=== PATIENT | female | born 1980 | race Caucasian/White ===

== ENCOUNTER 2016-12-28 11:35 | Inpatient (IN) | payer SELFPAY ==
[~2016-12-28] VITALS: Ht 152.4 cm; Wt 52.6 kg
[2016-12-28] VITALS (8 sets, daily range): BP systolic 103–118; BP diastolic 70–77; BMI 22.7
[2016-12-28 12:36] LABS: BASOPHILS 0.5 % (0.0-2.0); EOSINOPHILS 0.2 % (0-7); HEMATOCRIT 41.1 % (36.0-48.0); IMMATURE GRANULOCYTES 0.2 % (0-5); LYMPHOCYTES 16.5 % (15-50); MCH 28.5 pg (26.0-34.0); MCHC 31.6 g/dL (31.0-37.0); MCV 90.1 fL (80.0-100.0); MEAN PLATELET VOLUME 9.4 fL (7.4-10.4); MONOCYTES 4.7 % (2-11); NEUTROPHILS 77.9 % (40-80); PLATELET COUNT 301 10x3/uL (130-400); RBC 4.56 10x6/uL (4.00-5.40); RDW 15.2 % (11.5-14.5); WBC 8.1 10x3/uL (4.8-10.8)
[2016-12-28 13:24] LABS: ALBUMIN 3.2 g/dL (3.4-5.0); BILIRUBIN - TOTAL 0.47 mg/dL (0.2-1.3); CALCIUM 9.3 mg/dL (8.5-10.1); CREATININE - SERUM 1.1 mg/dL (0.6-1.3); MAGNESIUM - SERUM 1.6 mg/dL (1.8-2.4); PROTEIN - SERUM 7.8 g/dL (6.4-8.2)
[2016-12-28 13:51] LABS: APPEARANCE HAZY (CLEAR); BILIRUBIN NEGATIVE (NEGATIVE); COLOR STRAW (YELLOW); GLUCOSE 1000 mg/dL (NEGATIVE); KETONE LARGE mg/dL (NEGATIVE); LEUKOCYTE ESTERASE 1+ (NEGATIVE); NITRITE NEGATIVE (NEGATIVE); PROTEIN NEGATIVE (NEGATIVE); RED CELLS - URINE OCC /hpf (0-5); SPECIFIC GRAVITY 1.015 (1.005-1.020); UROBILINOGEN NORMAL (NORMAL)
[2016-12-28 13:52] LABS: BACTERIA FEW /hpf (NONE SEEN); EPITHELIAL CELLS 0-5 /hpf (0-5); MUCUS <1+ /lpf (NONE SEEN)
[2016-12-28 18:16] LABS: BASOPHILS 0.2 % (0.0-2.0); EOSINOPHILS 0.6 % (0-7); IMMATURE GRANULOCYTES 0.2 % (0-5); LYMPHOCYTES 23.1 % (15-50); MCH 28.2 pg (26.0-34.0); MCHC 31.8 g/dL (31.0-37.0); MCV 88.7 fL (80.0-100.0); MEAN PLATELET VOLUME 8.7 fL (7.4-10.4); MONOCYTES 7.1 % (2-11); NEUTROPHILS 68.8 % (40-80); RDW 15.1 % (11.5-14.5); WBC 9.9 10x3/uL (4.8-10.8)
[2016-12-28 18:29] LABS: CALCIUM 7.8 mg/dL (8.5-10.1); CHLORIDE - SERUM 104 mmol/L (98-107); CREATININE - SERUM 0.9 mg/dL (0.6-1.3); SODIUM 139 mmol/L (136-145); eGFR NON AFRICAN AMERICAN 76 mL/min (90-120)
[2016-12-28 18:41] LABS: CALC OSMOLALITY 275 mosm/kg (275-300); CARBON DIOXIDE 17.8 mmol/L (21.0-32.0); GLUCOSE 125 mg/dL (74-106); UREA NITROGEN 5 mg/dL (7-18)
[2016-12-28 18:42] LABS: HEMATOCRIT 28.3 % (36.0-48.0); PLATELET COUNT 177 10x3/uL (130-400); POTASSIUM - SERUM 2.9 mmol/L (3.5-5.1); RBC 3.19 10x6/uL (4.00-5.40)
--- NOTE | 2016-12-28 19:34 | NUR ---
HX COMPLETE. PT AWAKE ALERT ORIENTED X4 O2 VIA RA O2 SAT 98% RR 16 NON LABORED BILAT LUNGS CLEAR ABD FLAT BS ACTIVE X4. HEART S1S2 HR 84 NSR. BILAT RADIAL AND PEDAL PULSES PALP +2 NO EDEMA NOTED X4 EXTREMETIES. VSS PT DENES NEEDS. WILL CONTINUE TO MONITOR.
--- NOTE | 2016-12-28 21:14 | NUR ---
PT UP IN BED WATCHING TV DENIES NEEDS. NO VISITORS AT THIS TIME. VSS. WILL CONTINUE TO MONITOR.
[2016-12-28] MEDS ORDERED: PROTONIX40 MG PO (21:55)
[2016-12-28] MEDS ORDERED: BUPROPION HCL100 MG PO (21:55)
[2016-12-28] MEDS ORDERED: PREMARIN1.25 MG PO (21:55)
[2016-12-28] MEDS ORDERED: EC-NAPROSYN375 MG PO (21:56)
[2016-12-28] MEDS ORDERED: LIPITOR20 MG PO (21:56)
[2016-12-28] MEDS ORDERED: BENTYL10 MG PO (21:56)
[2016-12-28] MEDS ORDERED: ZOFRAN4 MG PO (21:57)
[2016-12-28] MEDS ORDERED: PROVENTIL/2.5 MG/3 M INH (21:58)
[2016-12-28] MEDS ORDERED: PHENERGAN25 M1 PO (21:58)
[2016-12-28] MEDS ORDERED: STOOL SOFTENER240 MG PO (21:59)
[2016-12-28] MEDS ORDERED: NEURONTIN 300300 MG PO (21:59)
[2016-12-28] MEDS ORDERED: METAMUCIL PACKE1 PKT PO (21:59)
[2016-12-28] MEDS ORDERED: MIRALAX17 GM PO (22:00)
[2016-12-28] MEDS ORDERED: ZOLOFT50 MG PO (22:00)
[2016-12-28] MEDS ORDERED: REQUIP1 MG PO (22:00)
[2016-12-28] MEDS ORDERED: LANTUS INSULIN10 ML SC (22:02)
[2016-12-28] MEDS ORDERED: NOVOLOG100 U/M1 SC (22:04)
--- NOTE | 2016-12-28 22:16 | NUR ---
ASSISTED TO BEDSIDE COMMODE. 300 CC CARITO URINE NOTED.
--- NOTE | 2016-12-28 23:16 | NUR ---
REASSESSMENT COMPLETE PER FLOW SHEET. VSS. NO NEW CHNAGES. DENIES NEEDS. WILL CONTINUE TO MONITOR.
[2016-12-29] VITALS (14 sets, daily range): BP systolic 99–123; BP diastolic 65–81; Ht 152.4 cm; Wt 52.6 kg
--- NOTE | 2016-12-29 01:22 | NUR ---
PRN MORPHINE ADM FOR GENERALIZED PAIN. PT REQUEST BS TO BE ADM. BS [phone] U HUMULIN ADM. PER PROTOCOL. VSS WILL CONTINUE TO MONITOR.
--- NOTE | 2016-12-29 03:33 | NUR ---
REASSESSMENT COMPLETE PER FLOW SHEET. VSS NO NEW CHANGES. WILL CONTINUE TO MONITOR.
[2016-12-29 04:20] LABS: BILIRUBIN - TOTAL 0.19 mg/dL (0.2-1.3); CARBON DIOXIDE 16.8 mmol/L (21.0-32.0); CREATININE - SERUM 1.1 mg/dL (0.6-1.3); MAGNESIUM - SERUM 1.6 mg/dL (1.8-2.4); PHOSPHOROUS 2.1 mg/dL (2.5-4.9)
[2016-12-29 04:25] LABS: BASOPHILS 0.6 % (0.0-2.0); EOSINOPHILS 2.2 % (0-7); HEMOGLOBIN 9.1 g/dL (12-16); IMMATURE GRANULOCYTES 0.5 % (0-5); LYMPHOCYTES 33.9 % (15-50); MCH 28.1 pg (26.0-34.0); MCHC 31.4 g/dL (31.0-37.0); MCV 89.5 fL (80.0-100.0); MEAN PLATELET VOLUME 8.8 fL (7.4-10.4); MONOCYTES 6.5 % (2-11); NEUTROPHILS 56.3 % (40-80); PLATELET COUNT 173 10x3/uL (130-400); RBC 3.24 10x6/uL (4.00-5.40); RDW 15.1 % (11.5-14.5); WBC 6.5 10x3/uL (4.8-10.8)
[2016-12-29 04:26] LABS: ALBUMIN 2.3 g/dL (3.4-5.0); ANION GAP 20.9 mmol/L (8-16); POTASSIUM - SERUM 3.7 mmol/L (3.5-5.1); PROTEIN - SERUM 5.6 g/dL (6.4-8.2)
--- NOTE | 2016-12-29 07:30 | NUR ---
PT AWAKE AND ALERT. CONVERSANT. C/O SOME PAIN IN HER ABDOMEN. NO NAUSEA OR VOMITING. DENIES ANY STOOLS. SHIFT ASSESSMENT COMPLETE. SEE FLOW SHEET FOR DETAILS.
--- NOTE | 2016-12-29 09:53 | NUR ---
Is the patient Alert and Oriented? Yes 0 * How many steps to enter\exit or inside your home? RAMP 0 * PCP DOES NOT HAVE ONE AT THIS TIME 0 * Pharmacy DOES NOT HAVE ONE 0 * Preadmission Environment Home with Family 0 * ADLs Independent 0 * Equipment Glucometer 0 * List name and contact numbers for known caregivers / representatives who currently or will assist patient after discharge: MOTHER: JACOB CACERES [phone] 0 * Community resources currently utilized None 0 * Additional services required to return to the preadmission environment? No 0 * Can the patient safely return to the preadmission environment? Yes 0 * Has this patient been hospitalized within the prior 30 days at any hospital? Yes 0 Grand Total: 0 PATIENT IS AWAKE AND ALERT. SHE STATES THAT SHE RECENTLY RELOCATED HERE FROM [place]. SHE STATES SHE LIVES AT HOME WITH HER MOTHER, JACOB CACERES. SHE STATES HER MOTHER WILL DRIVE HER HOME AT DISCHARGE. PATIENT DOES NOT HAVE A PCP. SHE DOES NOT HAVE A PHARMACY. SHE IS PLANNING TO TRY TO GET A PCP FROM THE [facility] [facility]. PATIENT STATES SHE HAS INSURANCE THRU [employer]. SHE DOES NOT HAVE HER CARD, IT IS IN HER PURSE AND HER MOTHER WILL BE BRINGING IT WHEN SHE VISITS. I TOLD HER TO LET THE NURSE KNOW SO WE CAN LET THE BUSINESS OFFICE COME GET COPIES. PATIENT STATES SHE HAS A GLUCOMETER THAT SHE USES TO MONITOR HER BLOOD SUGARS. PATIENT STATES SHE WAS PRESCRIBED HOME HEALTH WHEN SHE WAS IN [place]. THERE IS A RAMP TO ENTER HER HOME. NO DISCHARGE NEEDS IDENTIFIED AT THIS TIME.
--- NOTE | 2016-12-29 11:31 | NUR ---
PT HAS HAD BED BATH. HAS EATEN AND TOLERATED A CLEAR LIQUID TRAY. HAS WALKED WITH PHYSICAL THERAPY AROUND THE UNIT. SAYS WILL USE [facility] ON [facility] [address] FOR ANY PRESCRIPTIONS AT DISCHARGE
--- NOTE | 2016-12-29 11:40 | NUR ---
RECEIVED TO ROOM 2223 FROM ICU VIA . ORIENTED TO ROOM AND CALL LIGHT SYSTEM. CALL LIGHT IN REACH. WILL CONTINUE WITH PLAN OF CARE.
--- NOTE | 2016-12-29 12:44 | NUR ---
AWAKE AND ALERT. ORIENTED X3. FAMILY AT BEDSIDE. EATING CL LUNCH TRAY. DENIES NEEDS. REPORTS NO PAIN AT THIS TIME. RIGHT UPPER ARM PICC PATENT WITHOUT REDNESS AT INSERTION SITE.
--- NOTE | 2016-12-29 14:21 | NUR ---
BENTYL AND NEURONTIN PO. MORPHINE 4 MG SIVP. DID REAL WELL WITH CLEAR LIQUID DIET. HAD 3 SERVINGS WITH NO PROBLEMS AFTERWARDS.
--- NOTE | 2016-12-29 14:22 | NUR ---
REFUSES SCDs D/T MUSLCE SPASMS. [place] HAT PLACED IN BR FOR STOOL SPECIMEN.
--- NOTE | 2016-12-29 16:53 | NUR ---
FSBS 127 SO NO COVERAGE REQUIRED. BENTYL PO AND REGLAN IV.
--- NOTE | 2016-12-29 18:17 | NUR ---
MORPHINE 4 MG SIVP. NO CHANGES IN INITIAL ASSESSMENT. MOTHER IN ROOM. STILL REFUSES SCDs. CALL LIGHT IN REACH. WILL CONTINUE WITH PLAN OF CARE.
--- NOTE | 2016-12-30 04:48 | NUR ---
ASSESSED AT THE BEGINNING OF THE SHIFT. SHE IS ALERT AND ORIENTED, ABLE TO VERBALIZE NEEDS. SHE IS ALSO ABLE TO GET UP TO THE BATHROOM TO VOID AND IS REFUSING TO WEAR THE SCD'S. SHE HAS BEEN GIVEN PAIN MEDS ORDERED FAIRLY REGULAR. THE BED IS LOW, RAILS UP X'S 2 WITH THE CALL LIGHT AT HAND.
[2016-12-30 05:00] VITALS: BP 123/78
[2016-12-30 05:21] LABS: BASOPHILS 0.2 % (0.0-2.0); EOSINOPHILS 2.1 % (0-7); HEMATOCRIT 28.2 % (36.0-48.0); HEMOGLOBIN 8.9 g/dL (12-16); IMMATURE GRANULOCYTES 0.2 % (0-5); LYMPHOCYTES 28.1 % (15-50); MCH 28.4 pg (26.0-34.0); MCHC 31.6 g/dL (31.0-37.0); MCV 90.1 fL (80.0-100.0); MEAN PLATELET VOLUME 8.8 fL (7.4-10.4); MONOCYTES 6.6 % (2-11); NEUTROPHILS 62.8 % (40-80); PLATELET COUNT 186 10x3/uL (130-400); RBC 3.13 10x6/uL (4.00-5.40); RDW 15.3 % (11.5-14.5); WBC 5.3 10x3/uL (4.8-10.8)
[2016-12-30 05:52] LABS: ALBUMIN 2.3 g/dL (3.4-5.0); ALKALINE PHOSPHATASE 95 U/L (46-116); ALT (SGPT) 29 U/L (10-68); AMYLASE - SERUM 43 U/L (25-115); BILIRUBIN - TOTAL 0.12 mg/dL (0.2-1.3); CALC OSMOLALITY 288 mosm/kg (275-300); CALCIUM 8.4 mg/dL (8.5-10.1); CHLORIDE - SERUM 108 mmol/L (98-107); GLUCOSE 182 mg/dL (74-106); LIPASE 351 U/L (73-393); MAGNESIUM - SERUM 1.5 mg/dL (1.8-2.4); POTASSIUM - SERUM 3.4 mmol/L (3.5-5.1); PROTEIN - SERUM 5.5 g/dL (6.4-8.2); SODIUM 144 mmol/L (136-145); UREA NITROGEN 3 mg/dL (7-18)
[2016-12-30 05:56] LABS: CREATININE - SERUM 0.7 mg/dL (0.6-1.3); PHOSPHOROUS 3.4 mg/dL (2.5-4.9)
[2016-12-30 05:59] LABS: CARBON DIOXIDE 26.1 mmol/L (21.0-32.0); eGFR NON AFRICAN AMERICAN > 90 mL/min (90-120)
--- NOTE | 2016-12-30 08:00 | NUR ---
INITIAL ASSESSMENT COMPLETE PER FLOWSHEET AWAKE AND ALERT ORINETED X 3 LUNGS CLEAR BILATERALLY NO DISTRESS NOTED VOICES ALL NEEDS OT STAFF NEEDED CALL LIGHT INREACH SIDE RAILS UP X 2
--- NOTE | 2016-12-30 08:25 | NUR ---
PATIENT ALERT IN BED. NO SIGNS OF DISTRESS NOTED. PRIMARY NURSE MANDO MCGARRY AT BEDSIDE. SIDE RAILS UP X2. BED IN LOW POSITION. CALL LIGHT IN REACH.
[2016-12-30 08:38] VITALS: BP 130/89
--- NOTE | 2016-12-30 12:30 | NUR ---
MIDLINE PULLED PER MIDLINE NURSE NO BLEEDING NOTED PT GIVEN DISCHARGE INSTRUCTIONS AND STATED UNDERSTANDING GIVEN FOLLOW UP INSTRUCTIONS PER THIS NURSE EXPRESSED UNDERSTANDING. DISCHARGED TO HOME CARE WITH MOTHER AT SIDE
--- NOTE | 2016-12-30 13:04 | NUR ---
Midline-order for patient discharge. Contacted regarding removal of midline. Right upper arm midline-dressing removed, midline removed with cath intact at 14 cm. Pressure to area. Tegaderm dressing, instructed to remove in 24 hours. Livai Hendrix RN
--- NOTE | 2016-12-30 13:33 | NUR ---
CM REASSESSMENT NOTE: PATIENT STATED SHE DOES NOT HAVE A PCP AND IS GOING TO GET ESTABLISHED WITH DR. ALBERTO BELTRAN. STATED SHE JUST MOVED HERE. PATIENT DENIED HOME HEALTH OR ANY NEEDS AT THIS TIME. PATIENT STATED HER MOTHER WILL PICK HER UP TO DRIVE HER HOME
== END 2016-12-30 14:47 | disposition home or self-care (01) | DRG 638 ==
LOC: D.ER 11:35 → D.MS 17:44 → D.ICU 17:44 → D.MS 12-29 11:39
PROVIDERS: Emergency Medicine; ADMIT Emergency Medicine
DX: E10.10 Type 1 diabetes mellitus with ketoacidosis without coma (principal); K86.1 Other chronic pancreatitis; Z79.4 Long term (current) use of insulin; G25.81 Restless legs syndrome; F41.9 Anxiety disorder, unspecified; F32.9 Major depressive disorder, single episode, unspecified; E78.5 Hyperlipidemia, unspecified; D64.9 Anemia, unspecified; E87.6 Hypokalemia; E10.40 Type 1 diabetes mellitus with diabetic neuropathy, unspecified; E10.319 Type 1 diabetes mellitus with unspecified diabetic retinopathy without macular edema; E10.649 Type 1 diabetes mellitus with hypoglycemia without coma

== ENCOUNTER 2017-01-03 07:51 | Inpatient (IN) | payer OTHER ==
[~2017-01-03] VITALS: Ht 152.4 cm; Wt 67.8 kg
[2017-01-03] VITALS (12 sets, daily range): BP systolic 93–111; BP diastolic 63–78; BMI 22.7
[~2017-01-03 07:51] MED LIST: BENTYL10 MG PO; BUPROPION HCL100 MG PO; EC-NAPROSYN375 MG PO; LANTUS INSULIN10 ML SC; LIPITOR20 MG PO; METAMUCIL PACKE1 PKT PO; MIRALAX17 GM PO; NEURONTIN 300300 MG PO; NOVOLOG100 U/M1 SC; PHENERGAN25 M1 PO; PREMARIN1.25 MG PO; PROTONIX40 MG PO; PROVENTIL/2.5 MG/3 M INH; REQUIP1 MG PO; STOOL SOFTENER240 MG PO; ZOFRAN4 MG PO; ZOLOFT50 MG PO
[2017-01-03 08:50] LABS: BASOPHILS 0.4 % (0.0-2.0); EOSINOPHILS 0.4 % (0-7); HEMATOCRIT 42.3 % (36.0-48.0); HEMOGLOBIN 12.6 g/dL (12-16); IMMATURE GRANULOCYTES 0.7 % (0-5); LYMPHOCYTES 20.3 % (15-50); MCH 28.4 pg (26.0-34.0); MCHC 29.8 g/dL (31.0-37.0); MCV 95.5 fL (80.0-100.0); MEAN PLATELET VOLUME 9.8 fL (7.4-10.4); MONOCYTES 2.6 % (2-11); NEUTROPHILS 75.6 % (40-80); PLATELET COUNT 468 10x3/uL (130-400); RBC 4.43 10x6/uL (4.00-5.40); RDW 15.7 % (11.5-14.5); WBC 9.2 10x3/uL (4.8-10.8)
[2017-01-03 08:55] LABS: KETONE - SERUM LARGE mg/dL (NEGATIVE)
[2017-01-03 08:59] LABS: HCG URINE NEGATIVE (NEGATIVE)
[2017-01-03 09:07] LABS: APPEARANCE CLEAR (CLEAR); BILIRUBIN NEGATIVE (NEGATIVE); COLOR STRAW (YELLOW); GLUCOSE 1000 mg/dL (NEGATIVE); KETONE LARGE mg/dL (NEGATIVE); LEUKOCYTE ESTERASE NEGATIVE (NEGATIVE); NITRITE NEGATIVE (NEGATIVE); PROTEIN NEGATIVE (NEGATIVE); SPECIFIC GRAVITY 1.015 (1.005-1.020); UROBILINOGEN NORMAL (NORMAL)
[2017-01-03 09:10] LABS: ALBUMIN 3.5 g/dL (3.4-5.0); ALKALINE PHOSPHATASE 145 U/L (46-116); ALT (SGPT) 36 U/L (10-68); AMYLASE - SERUM 63 U/L (25-115); CALCIUM 10.2 mg/dL (8.5-10.1); CHLORIDE - SERUM 92 mmol/L (98-107); CREATININE - SERUM 1.6 mg/dL (0.6-1.3); LIPASE 841 U/L (73-393); POTASSIUM - SERUM 3.4 mmol/L (3.5-5.1); PROTEIN - SERUM 8.7 g/dL (6.4-8.2); SODIUM 135 mmol/L (136-145); UREA NITROGEN 26 mg/dL (7-18); eGFR NON AFRICAN AMERICAN 39 mL/min (90-120)
[2017-01-03 09:11] LABS: CALC OSMOLALITY 310 mosm/kg (275-300)
[2017-01-03 09:12] LABS: UDS - AMPHET NEGATIVE QUAL (NEGATIVE); UDS - BARB NEGATIVE QUAL (NEGATIVE); UDS - BENZO NEGATIVE QUAL (NEGATIVE); UDS - COCAINE NEGATIVE QUAL (NEGATIVE); UDS - METH NEGATIVE QUAL (NEGATIVE); UDS - OPIATE NEGATIVE QUAL (NEGATIVE); UDS - PCP NEGATIVE QUAL (NEGATIVE); UDS - THC NEGATIVE QUAL (NEGATIVE)
[2017-01-03 09:13] LABS: CARBON DIOXIDE 3.8 mmol/L (21.0-32.0); GLUCOSE 745 mg/dL (74-106)
[2017-01-03 13:02] LABS: CALCIUM 7.9 mg/dL (8.5-10.1)
[2017-01-03 13:06] LABS: ANION GAP 33.2 mmol/L (8-16); CREATININE - SERUM 1.1 mg/dL (0.6-1.3); POTASSIUM - SERUM 4.9 mmol/L (3.5-5.1)
[2017-01-03 13:10] LABS: CARBON DIOXIDE 6.7 mmol/L (21.0-32.0)
[2017-01-03 17:08] LABS: CALCIUM 8.3 mg/dL (8.5-10.1); CHLORIDE - SERUM 104 mmol/L (98-107); CREATININE - SERUM 1.1 mg/dL (0.6-1.3); MAGNESIUM - SERUM 1.5 mg/dL (1.8-2.4); PHOSPHOROUS 2.6 mg/dL (2.5-4.9); POTASSIUM - SERUM 4.8 mmol/L (3.5-5.1); SODIUM 137 mmol/L (136-145); UREA NITROGEN 18 mg/dL (7-18); eGFR NON AFRICAN AMERICAN 60 mL/min (90-120)
[2017-01-03 17:20] LABS: CALC OSMOLALITY 278 mosm/kg (275-300); CARBON DIOXIDE 13.3 mmol/L (21.0-32.0); GLUCOSE 144 mg/dL (74-106)
[2017-01-03 17:25] LABS: KETONE - SERUM LARGE mg/dL (NEGATIVE)
--- NOTE | 2017-01-03 19:27 | NUR ---
REPORT RECIEVED. ASSESSMENT COMPELTE PER FLOW SHEET. VSS. REFER FOR FINDINGS.
--- NOTE | 2017-01-03 20:40 | NUR ---
LARGE BM NOTED. STOOL SPECIMEN OBTAINED. NEEDS MET
--- NOTE | 2017-01-03 21:20 | NUR ---
NO FAMILY AT THIS TIME. VSS PT C/O OF PAIN 8 GENERALIZED PRN DILAUDID ADM. NEEDS MET
--- NOTE | 2017-01-03 23:04 | NUR ---
REASSESSMENT COMPLETE PER FLOW SHEET. VSS. PT SLEEPING COMFORTABLY. NO NEW CHANGES AT THIS TIME.
[2017-01-04] VITALS (23 sets, daily range): BP systolic 90–126; BP diastolic 64–91; Ht 152.4 cm; Wt 67.8 kg
--- NOTE | 2017-01-04 | NUR ---
PRN DILAUDID ADM FOR PAIN 08/30
--- NOTE | 2017-01-04 01:16 | NUR ---
PARTIAL LINEN CHANGE BM NTOD
--- NOTE | 2017-01-04 03:15 | NUR ---
-PRN DILAUDID ADM FOR PAIN 08/30
[2017-01-04 05:17] LABS: BASOPHILS 0.1 % (0.0-2.0); EOSINOPHILS 2.2 % (0-7); HEMATOCRIT 29.8 % (36.0-48.0); HEMOGLOBIN 9.4 g/dL (12-16); IMMATURE GRANULOCYTES 0.3 % (0-5); LYMPHOCYTES 22.5 % (15-50); MCH 28.3 pg (26.0-34.0); MCHC 31.5 g/dL (31.0-37.0); MCV 89.8 fL (80.0-100.0); MEAN PLATELET VOLUME 9.3 fL (7.4-10.4); MONOCYTES 11.8 % (2-11); NEUTROPHILS 63.1 % (40-80); PLATELET COUNT 269 10x3/uL (130-400); RBC 3.32 10x6/uL (4.00-5.40); WBC 7.3 10x3/uL (4.8-10.8)
[2017-01-04 05:41] LABS: ALKALINE PHOSPHATASE 88 U/L (46-116); BILIRUBIN - TOTAL 0.17 mg/dL (0.2-1.3); CALCIUM 7.9 mg/dL (8.5-10.1); CHLORIDE - SERUM 104 mmol/L (98-107); GLUCOSE 125 mg/dL (74-106); LIPASE 197 U/L (73-393); MAGNESIUM - SERUM 1.4 mg/dL (1.8-2.4); SODIUM 136 mmol/L (136-145)
[2017-01-04 05:53] LABS: ALBUMIN 2.4 g/dL (3.4-5.0); ALT (SGPT) 24 U/L (10-68); AMYLASE - SERUM 35 U/L (25-115); CALC OSMOLALITY 271 mosm/kg (275-300); CARBON DIOXIDE 22.1 mmol/L (21.0-32.0); CREATININE - SERUM 0.8 mg/dL (0.6-1.3); POTASSIUM - SERUM 3.1 mmol/L (3.5-5.1); PROTEIN - SERUM 5.8 g/dL (6.4-8.2); UREA NITROGEN 10 mg/dL (7-18); eGFR NON AFRICAN AMERICAN 87 mL/min (90-120)
--- NOTE | 2017-01-04 07:00 | NUR ---
REPORT RECEIVED. ASSESSMENT COMPLETED. PATIENT DENIES NEEDS AT THIS TIME.
--- NOTE | 2017-01-04 07:55 | NUR ---
FSBS 96, DECREASED INSULIN DRIP TO 100 UNITS PER HOUR
--- NOTE | 2017-01-04 09:17 | NUR ---
DILAUDID GIVEN PER PRN ORDERS
--- NOTE | 2017-01-04 09:33 | NUR ---
CALL PLACED TO DR WIGGINS SECONDARY TO PATIENT C/O ITCHING ALL OVER. EXPLAINED THE PATIENT IS REQUESTING BENDARYL. DR WIGGINS SAID NO TO BENADRYL AND ORDER CLARITIN 10MG PO DAILY.
--- NOTE | 2017-01-04 11:13 | NUR ---
PT C/O NAUSEA. ZOFRAN GIVEN PER PRN ORDERS,.
--- NOTE | 2017-01-04 12:24 | NUR ---
DILAUDID GIVEN PER PRN ORDERS.
--- NOTE | 2017-01-04 12:31 | NUR ---
Is the patient Alert and Oriented? Yes 0 * How many steps to enter\exit or inside your home? RAMP 0 * PCP DR. LOMAS 0 * Pharmacy [facility] ON [facility] 0 * Preadmission Environment Home with Family 0 * ADLs Independent 0 * Equipment Glucometer 0 * List name and contact numbers for known caregivers / representatives who currently or will assist patient after discharge: MOTHER: JACOB CACERES [phone] 0 * Community resources currently utilized None 0 * Additional services required to return to the preadmission environment? No 0 * Can the patient safely return to the preadmission environment? Yes 0 * Has this patient been hospitalized within the prior 30 days at any hospital? Yes PATIENT LIVES WITH HER MOTHER. THEY JUST WITHIN LAST FEW WEEKS MOVED TO [place] FROM [place]. HE MOTHER STATES SHE WILL BE RETURNING HOME WITH HER AT DISCHARGE. SHE WILL BE AVAILABLE TO DRIVE PATIENT HOME. PATIENT'S MOTHER STATES PATIENT NOW HAS DR. LOMAS FOR PCP. SHE GETS HER MEDS AT [facility] ON [facility]. PATIENT HAS A GLUCOMETER. SHE DENIES HOME HEALTH IN THE PAST. THERE IS A RAMP TO ENTER HER HOME. NO DISCHARGE NEEDS AT THIS TIME.
[2017-01-04 13:31] LABS: APPEARANCE CLEAR (CLEAR); BILIRUBIN NEGATIVE (NEGATIVE); COLOR YELLOW (YELLOW); GLUCOSE 500 mg/dL (NEGATIVE); KETONE MODERATE mg/dL (NEGATIVE); LEUKOCYTE ESTERASE NEGATIVE (NEGATIVE); NITRITE NEGATIVE (NEGATIVE); PROTEIN NEGATIVE (NEGATIVE); SPECIFIC GRAVITY 1.015 (1.005-1.020); UROBILINOGEN NORMAL (NORMAL)
--- NOTE | 2017-01-04 13:40 | NUR ---
PATIENT GONE TO CT FOR CT OF ABD.
--- NOTE | 2017-01-04 15:31 | NUR ---
NUTRITION MONITORING & EVAL CHART REVIEWED. PT IN ICU, ISOLATION, SLEEPING. WILL DEFER DM EDU UNTIL PT MORE ALERT AND OR TX TO FLOOR. RD FOLLOWING
--- NOTE | 2017-01-04 17:58 | NUR ---
PATIENT IN SEMIFOWLERS POSITION WITH EYES CLOSED HUGGING HER MARGIE BEAR. NO VISUAL CUES OF DISTRESS NOTED.
--- NOTE | 2017-01-04 18:25 | NUR ---
PT STILL C/O ITCHING. REQUESTING SOMETHING ELSE. RADHA KIMBROUGH TELLER HEAD FOR DR ROSALIE CAR.
--- NOTE | 2017-01-04 18:31 | NUR ---
SPOKE WITH KAYLAN RICHTER APN. NEW ORDERS RECEIVED AND EXPLAINED TO THE PATIENT.
--- NOTE | 2017-01-04 19:45 | NUR ---
ASSESSMENT COMPLETE. S1S2. NSR SHOWING ON MONITOR. RR CLEAR; NON LABORED. PT AMBULATES; STEADY GAIT. L WRIST; L FOREARM PIV; BOTH PATENT. ON ROOM AIR O2 SAT 97%. ON ISO FOR CDT. RADIAL AND PEDAL PULSES PALPATED. AAO. BOWEL SOUNDS ACTIVE X4. PT UP TO BEDSIDE COMMODE; SELF AMBULATING; NO ASSISTANCE. USES CALL LIGHT.
--- NOTE | 2017-01-04 20:00 | NUR ---
PT REQUESTED DEMEROL FOR PAIN.
--- NOTE | 2017-01-04 21:38 | NUR ---
PT C/O NAUSEA. PRN ZOFRAN GIVEN PER ORDERS. SEE EMAR FOR DETAILS.
--- NOTE | 2017-01-04 23:00 | NUR ---
REASSESSMENT COMPLETE. NO CHANGES FROM PREVIOUS ASSESSMENT. SEE FLOW SHEET FOR DETAILS.
[2017-01-05] VITALS (12 sets, daily range): BP systolic 118–152; BP diastolic 62–102
--- NOTE | 2017-01-05 02:20 | NUR ---
PT UP TO BEDSIDE COMMODE; INDEPENDENTLY.
--- NOTE | 2017-01-05 03:15 | NUR ---
REASSESSMENT COMPLETE. NO CHANGES FROM PREVIOUS ASSESSMENT OTHER THAN MOTTLED SKIN NOTED BILATERALLY ON FEET; ANKLES UP TO MID SCHROEDER. PT STATES NOT NEW.
--- NOTE | 2017-01-05 04:25 | NUR ---
PT REQUEST DEMEROL FOR GENERALIZED PAIN. GIVEN PER ORDERS. SEE EMAR FOR DETAILS.
--- NOTE | 2017-01-05 04:36 | NUR ---
PT REFUSES TO WEAR SCD'S STATING, "USES BATHROOM ON SELF BECAUSE CAN'T GET THEM OFF FAST ENOUGH"
[2017-01-05 04:40] LABS: BASOPHILS 0.7 % (0.0-2.0); EOSINOPHILS 2.8 % (0-7); HEMOGLOBIN 9.8 g/dL (12-16); IMMATURE GRANULOCYTES 0.5 % (0-5); LYMPHOCYTES 35.3 % (15-50); MCH 27.8 pg (26.0-34.0); MCHC 30.6 g/dL (31.0-37.0); MCV 90.7 fL (80.0-100.0); MEAN PLATELET VOLUME 8.8 fL (7.4-10.4); MONOCYTES 12.4 % (2-11); NEUTROPHILS 48.3 % (40-80); PLATELET COUNT 254 10x3/uL (130-400); RBC 3.53 10x6/uL (4.00-5.40); RDW 15.5 % (11.5-14.5)
[2017-01-05 04:47] LABS: WBC 4.4 10x3/uL (4.8-10.8)
[2017-01-05 05:08] LABS: ALBUMIN 2.7 g/dL (3.4-5.0); ALKALINE PHOSPHATASE 103 U/L (46-116); BILIRUBIN - TOTAL 0.11 mg/dL (0.2-1.3); CARBON DIOXIDE 23.1 mmol/L (21.0-32.0); CHLORIDE - SERUM 106 mmol/L (98-107); CREATININE - SERUM 0.6 mg/dL (0.6-1.3); GLUCOSE 88 mg/dL (74-106); LIPASE 495 U/L (73-393); PROTEIN - SERUM 6.1 g/dL (6.4-8.2); SODIUM 141 mmol/L (136-145); eGFR NON AFRICAN AMERICAN > 90 mL/min (90-120)
[2017-01-05 05:12] LABS: ALT (SGPT) 49 U/L (10-68); AMYLASE - SERUM 49 U/L (25-115); CALC OSMOLALITY 276 mosm/kg (275-300); UREA NITROGEN 4 mg/dL (7-18)
--- NOTE | 2017-01-05 07:00 | NUR ---
REPORT RECEIVED, ASSESSMENT COMPLETED. LEFT PATIENT SITTING UP ON THE BEDSIDE COMMODE.
--- NOTE | 2017-01-05 07:55 | NUR ---
PATIENT ORDERED A SECOND BREAKFAST PER HER REQUEST. SHE STATED THAT SHE IS STARVING AND NEEDED MORE FOOD. WAS ON HER CALL LIGHT 2 TIME IN REGARDS TO THIS.
--- NOTE | 2017-01-05 08:29 | NUR ---
FIRST DOSE OF MAGNESIUM GIVEN PER ELECTROLYTE PROTOCOL.
--- NOTE | 2017-01-05 09:12 | NUR ---
PATIENT STOOD AT SINK AND DID A BATH, LINENS CHANGED.
--- NOTE | 2017-01-05 12:35 | NUR ---
SECOND MAGNESIUM GIVEN PER ELECTROLYE PROTOCOL.
--- NOTE | 2017-01-05 13:53 | NUR ---
PT C/O STILL BEING HUNGRY. SHE WANTED TO KNOW WHAT ELSE SHE COULD HAVE SOUP L[place]DBERG BESIDED CREAM OF CHICKEN. SPOKE WITH THE KITCHEN. PER THEM, THE ONLY OTHER SOUP WAS TOMATO FOR THE FULL LIQUID DIET. PATIENT REQUESTED THIS. DIETMESSAGE WAS PLACED IN THE COMPUTER.
--- NOTE | 2017-01-05 14:12 | NUR ---
REPORT CALLED TO COLE EDDY. PATIENT WILL TRANSFER TO ROOM 2214.
--- NOTE | 2017-01-05 15:03 | NUR ---
PT RECIEVEDS FROM ICU PER WC. VS 97.9 147/90 75 16 99% ON RA. NO COMPLAINTS AT PRESENT. REMAINS IN ENTERIC ISOLATION. WANTS TO CLEAN UP SHORTLY. CALL LIGHT IN REACH. ORIENTED TO ROOM.
--- NOTE | 2017-01-05 15:16 | NUR ---
NUTRITION MONITORING & EVAL CHART REVIEWED. PT VISIT. PT TYPE 1 DIABETIC, STATES SHE HAS HAD DIET EDU PREVIOUSLY. INQUIRING ~ ADVANCING DIET FROM FULL LIQUIDS TO REG DIABETIC. SPOKE WITH RADHA CEJA RE: DIET. DECISION CURRENTLY PENDING. RD FOLLOWING
--- NOTE | 2017-01-05 15:30 | NUR ---
UNHOOKED PATIENT FROM IV TO HAVE A SHOWER. TOLERATED WELL. IS ASKING TO BE PLACED ON A REGULAR DIET FROM THE LIQUID DIET. BED LOW AND LOCKED CALL LIGHT IN REACH. INTRUCTED PT TO CALL IF NEEDED ANYTHING. PT VERBALIZED UNDERSTANDING.
--- NOTE | 2017-01-05 18:32 | NUR ---
PATIENT WAS ASKING FOR EXTRA SOUP AND POP @1830 GOT THOSE FOR HER. TRANSFERRED FROM ICU. CHANGED BAG OF NS 20% K+. HAS FAMILY IN THE ROOM WITH HER. BED LOW, LOCKED, CALL LIGHT IN REACH. INTRUCTED TO CALL IF NEEDED ANYTHING. PT VERBALIZED UNDERSTANDING.
--- NOTE | 2017-01-05 19:00 | NUR ---
BEDSIDE REPORT RECEIVED AND CARE OF PT ASSUMED. PT SITTING UP IN BED COLORING. IV IN LEFT FA PATENT WITH NS W/ 40 K INFUSING AT 75 ML / HR. WILL MONITOR CLOSLEY FOR NEEDS.
--- NOTE | 2017-01-05 19:30 | NUR ---
GAVE SNACK OF JELLO FOR SNACK.
--- NOTE | 2017-01-05 19:31 | NUR ---
GAVE DEMERAL 25 MG IVP PER PT REQUEST FOR PAIN, PER PRN ORDER. WILL MONITOR FOR EFFECTIVENESS.
--- NOTE | 2017-01-05 21:15 | NUR ---
HS MEDICATIONS GIVEN. FSBS 139 THIS CHECK, REQUIRING NO COVERAGE VIA SLIDING SCALE.
--- NOTE | 2017-01-05 21:25 | NUR ---
SNACK OF PUDDING AND SF SODA GIVEN PER REQUEST.
[2017-01-06] VITALS: BP 123/72
--- NOTE | 2017-01-06 00:14 | NUR ---
GAVE DEMERAL IVP PER PRN ORDER PER PT REQUEST FOR PAIN. WILL MONITOR FOR EFFECTIVENESS. SIDE RAILS UP X2 FOR SAFETY.
--- NOTE | 2017-01-06 03:22 | NUR ---
FSBS 76 THIS CHECK. NO COVERAGE NEEDED PER SLIDING SCALE. GAVE SNACK OF PUDDING AND SF SODA. WILL CONTINUE TO MONITOR FOR NEEDS.
[2017-01-06 04:00] VITALS: BP 133/79
[2017-01-06 05:33] LABS: BASOPHILS 0.3 % (0.0-2.0); EOSINOPHILS 3.3 % (0-7); HEMOGLOBIN 9.5 g/dL (12-16); IMMATURE GRANULOCYTES 0.3 % (0-5); LYMPHOCYTES 43.6 % (15-50); MCH 27.8 pg (26.0-34.0); MCHC 30.6 g/dL (31.0-37.0); MCV 90.6 fL (80.0-100.0); MEAN PLATELET VOLUME 9.3 fL (7.4-10.4); MONOCYTES 12.7 % (2-11); NEUTROPHILS 39.8 % (40-80); PLATELET COUNT 237 10x3/uL (130-400); RBC 3.42 10x6/uL (4.00-5.40); RDW 15.6 % (11.5-14.5); WBC 3.3 10x3/uL (4.8-10.8)
[2017-01-06 06:08] LABS: ALBUMIN 2.7 g/dL (3.4-5.0); ALKALINE PHOSPHATASE 103 U/L (46-116); AMYLASE - SERUM 54 U/L (25-115); CALCIUM 8.3 mg/dL (8.5-10.1); CARBON DIOXIDE 21.6 mmol/L (21.0-32.0); CHLORIDE - SERUM 107 mmol/L (98-107); CREATININE - SERUM 0.5 mg/dL (0.6-1.3); LIPASE 733 U/L (73-393); MAGNESIUM - SERUM 1.5 mg/dL (1.8-2.4); POTASSIUM - SERUM 3.6 mmol/L (3.5-5.1); SODIUM 144 mmol/L (136-145); eGFR NON AFRICAN AMERICAN > 90 mL/min (90-120)
[2017-01-06 06:31] LABS: ALT (SGPT) 67 U/L (10-68); BILIRUBIN - TOTAL 0.07 mg/dL (0.2-1.3); CALC OSMOLALITY 284 mosm/kg (275-300); GLUCOSE 135 mg/dL (74-106); UREA NITROGEN 2 mg/dL (7-18)
--- NOTE | 2017-01-06 07:50 | NUR ---
REMAINS IN ENTERIC ISOLATION AT THIS TIME FOR C-DIFF. PT STATES, "I NEED REAL FOOD AND IF I DO NOT GET REAL FOOD TODAY I WILL SIGN OUT AMA." ACKNOWLEDGED PT'S CONCERN AND EXPLAINED THAT I WOULD LOOK INTO IT. PT AMBULATES INDEPENDENTLY AND SELF POSITIONS FOR COMFORT. SRX2 WITH BED IN LOWEST POSITION AND WHEELS LOCKED. CALL LIGHT IN REACH. WILL CONTINUE WITH PLAN OF CARE.
[2017-01-06 07:58] VITALS: BP 159/95
--- NOTE | 2017-01-06 08:58 | NUR ---
PT REQUESTING TO LEAVE AMA. NOTIFIED LEIA LOVE, CHARGE NURSE, AND FANCY WIRE DRAWER. EXPLAINED RISKS AND BENEFITS TO PT AND PT STILL REQUESTING TO LEAVE. AMA FORM SIGNED AND WITNESSED. IV X2 TO LEFT ARM D/C WITH CATH TIP INTACT.
== END 2017-01-06 09:10 | disposition left against medical advice (07) | DRG 637 ==
LOC: D.ER 07:51 → D.ICU 12:31 → D.MS 12:31 → D.ICU 14:22 → D.MS 01-05 14:44
PROVIDERS: Family Medicine; Internal Medicine; ADMIT Family Medicine
DX: E10.10 Type 1 diabetes mellitus with ketoacidosis without coma (principal); K85.90 Acute pancreatitis without necrosis or infection, unspecified; N17.9 Acute kidney failure, unspecified; Z79.4 Long term (current) use of insulin; E10.40 Type 1 diabetes mellitus with diabetic neuropathy, unspecified; E10.319 Type 1 diabetes mellitus with unspecified diabetic retinopathy without macular edema; E87.6 Hypokalemia; E83.42 Hypomagnesemia; G25.81 Restless legs syndrome; E78.5 Hyperlipidemia, unspecified; K52.9 Noninfective gastroenteritis and colitis, unspecified; K21.9 Gastro-esophageal reflux disease without esophagitis; F41.9 Anxiety disorder, unspecified; F32.9 Major depressive disorder, single episode, unspecified